=== PATIENT | male | born 1995 | race Two or more races ===

== ENCOUNTER 2021-06-01 08:35 | Emergency (ER) | payer MEDICAID, OTHER ==
[~2021-06-01] VITALS: Ht 182.9 cm; Wt 83.9 kg
[2021-06-01 09:37] VITALS: BP 141/84
[2021-06-01] MEDS ORDERED: IBUP800T27 PO (10:03)
== END 2021-06-01 10:08 | disposition home or self-care (01) ==
LOC: ER 08:35
DX: S46.011A Strain of muscle(s) and tendon(s) of the rotator cuff of right shoulder, initial encounter (principal); Z87.891 Personal history of nicotine dependence; X50.9XXA Other and unspecified overexertion or strenuous movements or postures, initial encounter; Y93.89 Activity, other specified; Y92.89 Other specified places as the place of occurrence of the external cause; Y99.8 Other external cause status
CPT/HCPCS: 73030